=== PATIENT | female | born 1970 | race Caucasian/White ===

== ENCOUNTER 2016-11-12 16:22 | Emergency (ER) | payer OTHER ==
[2016-11-12 16:39] VITALS: BP 156/83; PULSE 82; RESP 16; TEMP 98.4; O2SAT 96
--- NOTE | 2016-11-12 16:47 | EDPHY ---
H & P Stated Complaint: left knee pain sp walking down stairs. ~ 1500 Time Seen by Provider: 11/12/16 16:34 HPI/ROS: CHIEF COMPLAINT: left posterior knee pain HISTORY OF PRESENT ILLNESS: the patient is a 46-year-old morbidly obese female who comes to the emergency department complaining of left knee pain. She states that it has been hurting for about a month and that she occasionally wears a knee brace. The pain is primarily to the posterior lateral aspect of her knee and radiates down lateral aspect of her leg into her lateral toes. Also up into her lateral posterior thigh. She has not had any fevers. She denies any trauma or fall. She does not feel unstable. She states that she was walking down the stairs today and had a significant increase in pain. She is able to ambulate. No low back pain. No paresthesias. Normal strength. No fevers or erythema. no swelling. She did travel to [place] 2 weeks ago. she is primarily worried about a tendon injury. REVIEW OF SYSTEMS: Constitutional: denies: chills, fever, recent illness, recent injury EENTM: denies: blurred vision, double vision, nose congestion Respiratory: denies: cough, shortness of breath Cardiac: denies: chest pain, irregular heart rate, lightheadedness, palpitations Gastrointestinal/Abdominal: denies: abdominal pain, diarrhea, nausea, vomiting, blood streaked stools Genitourinary: denies: dysuria, frequency, hematuria, pain Musculoskeletal: See HPI Skin: denies: lesions, rash, jaundice, bruising Neurological: denies: headache, numbness, paresthesia, tingling, dizziness, weakness Hematologic/Lymphatic: denies: blood clots, easy bleeding, easy bruising Immunologic/allergic: denies: HIV/AIDS, transplant EXAM: GENERAL: Well-appearing, well-nourished and in no acute distress. HEAD: Atraumatic, normocephalic. EYES: Pupils equal round and reactive to light, extraocular movements intact, sclera anicteric, conjunctiva are normal. ENT: TMs normal, nares patent, oropharynx clear without exudates. Moist mucous membranes. NECK: Normal range of motion, supple without lymphadenopathy or JVD. LUNGS: Breath sounds clear to auscultation bilaterally and equal. No wheezes rales or rhonchi. HEART: Regular rate and rhythm without murmurs, rubs or gallops. ABDOMEN: Soft, nontender, normoactive bowel sounds. No guarding, no rebound. No masses appreciated. BACK: No CVA tenderness, no spinal tenderness, step-offs or deformities EXTREMITIES: Knee with normal range of motion, no laxity anterior-posterior or from side to side. No pain with axial loading or grinding. Strong pulses and normal sensation. NEUROLOGICAL: Cranial nerves II through XII grossly intact. Normal speech, normal gait. 5/5 strength, normal movement in all extremities, normal sensation PSYCH: Normal mood, normal affect. SKIN: Warm, dry, normal turgor, no visible rashes or lesions. Source: Patient Exam Limitations: No limitations - Personal History LMP (Females 10-55): Unknown Current Tetanus Diphtheria and Acellular Pertussis (TDAP): Yes - Medical/Surgical History Hx Asthma: No Hx Chronic Respiratory Disease: No Hx Diabetes: No Hx Cardiac Disease: No Hx Renal Disease: No Hx Cirrhosis: No Hx Alcoholism: No Other PMH: thyroid - Family History Significant Family History: No pertinent family hx - Social History Smoking Status: Never smoked Alcohol Use: Sober Drug Use: None Constitutional: Initial Vital Signs Temperature (C) 36.9 C 11/12/16 16:37 Heart Rate 82 11/12/16 16:37 Respiratory Rate 16 11/12/16 16:37 Blood Pressure 156/83 H 11/12/16 16:37 O2 Sat (%) 96 11/12/16 16:37 O2 Delivery Mode Room Air Allergies/Adverse Reactions: Penicillins Allergy (Verified 11/12/16 16:40) Home Medications: Medication Instructions Recorded Levothyroxine [Synthroid 200 mcg 02/16/12 (*)] Medical Decision Making - Diagnostics Imaging Results: Imaging Impressions Extremity Venous Study 11/12/16 16:43 Impression: No deep venous thrombosis left leg. Findings and recommendations discussed with Emergency Department physician, RICHARD GROVES at 17:19 hour, 11/12/2016. Final report concurs with initial preliminary interpretation. Imaging: Discussed imaging studies w/ call center director Radiologist ED Course/Re-evaluation: We discussed the ultrasound results. The patient refused x-ray. I agree with her that she may have a ligamentous injury. I will refer her to Orthopedics. She refused brace states that she has been home. We discussed indications for returning. Differential Diagnosis: Partial list of the Differential diagnosis considered include but were not limited to; contusion, strain, tear, and although unlikely based on the history and physical exam, I also considered fracture, infection, Andres cyst, DVT, low back pain. I discussed these differential diagnoses and the plan with the patient as well as the usual and expected course. The patient understands that the diagnosis is provisional and that in medicine we are not always correct and that further workup is often warranted. Usual and customary warnings were given. All of the patient's questions were answered. The patient was instructed to return to the emergency department should the symptoms at all worsen or return, otherwise to followup with the physician as we discussed. Departure - Departure Disposition: Home, Routine, Self-Care Clinical Impression: Knee pain, left Qualifiers: Chronicity: unspecified Qualified Code(s): M25.562 - Pain in left knee Condition: Fair Instructions: Knee Pain (ED) Referrals: Ada Chi MD [Primary Care Provider] - As per Instructions Iain Childs MD [Medical Doctor] - As per Instructions Shaka Izquierdo MD [Medical Doctor] - As per Instructions Booker Richards MD [Medical Doctor] - As per Instructions
== END 2016-11-12 17:29 | disposition home or self-care (01) ==
LOC: CED 16:22
DX: M25.562 Pain in left knee (principal)
CPT/HCPCS: 93971-PO

== ENCOUNTER → 2016-11-13 | Outpatient (CLI) | payer OTHER | LOC: CIMAGING 11:54 | PROVIDERS: ATTEND Family Medicine | DX: M17.12 Unilateral primary osteoarthritis, left knee (principal); M11.262 Other chondrocalcinosis, left knee | CPT/HCPCS: 73560-PO ==

== ENCOUNTER → 2017-01-26 | Outpatient (CLI) | payer OTHER | LOC: CIMAGING 07:33 | PROVIDERS: ATTEND Family Medicine | DX: Z12.31 Encounter for screening mammogram for malignant neoplasm of breast (principal); Z80.3 Family history of malignant neoplasm of breast | CPT/HCPCS: G0202 ==